=== PATIENT | female | born 1980 | race Caucasian/White ===

== ENCOUNTER → 2019-07-08 15:16 | Outpatient (BNVA) | payer SELFPAY | PROVIDERS: Family Provider Family Medicine; Visit Provider Nurse Practitioner | DX: M25.532 Pain in left wrist (principal) | CPT/HCPCS: 73110 ==

== ENCOUNTER → 2023-03-25 11:30 | Outpatient (BNVA) | payer BC, SELFPAY | PROVIDERS: Family Provider Family Medicine; Visit Provider Nurse Practitioner Women's Health | DX: Z12.4 Encounter for screening for malignant neoplasm of cervix (principal); Z71.1 Person with feared health complaint in whom no diagnosis is made | CPT/HCPCS: 87491; 87591; 87624 ==

== ENCOUNTER → 2024-09-20 12:39 | Outpatient (BNVA) | payer OTHER, SELFPAY | PROVIDERS: Family Provider Family Medicine; Visit Provider Emergency Medicine | DX: R30.0 Dysuria (principal); R10.2 Pelvic and perineal pain | CPT/HCPCS: 81000; 87086 ==